=== PATIENT | female | born 1985 | race African-American/Black ===

== ENCOUNTER 2022-02-09 09:50 | Outpatient (CLI) | payer OTHER, SELFPAY ==
[2022-02-09 19:21] LABS: Basophils Absolute Auto 0.1 K/mm3 (0.0-0.1); Basophils Percent Auto 1.5 % (0.2-1.2); Eosinophils Absolute Auto 0.2 K/mm3 (0-0.3); Eosinophils Percent Auto 3.1 % (0-4.4); Hematocrit 46.2 % (37.0-47.0); Hemoglobin 14.7 g/dL (12.0-15.0); Immature Granulocyte Absolute 0.03 K/mm3 (0.00-0.031); Immature Granulocyte Percent A 0.6 % (0-0.5); Lymphocytes Absolute Auto 2.32 K/mm3 (0.9-3.2); Lymphocytes Percent Auto 44.7 % (18.3-44.2); Mean Corpuscular HGB Conc 31.8 g/dl (32-36); Mean Corpuscular Volume 84.8 fl (80-100); Mean Platelet Volume 12.1 fl (7.4-10.4); Monocytes Absolute Auto 0.4 K/mm3 (0.1-0.6); Monocytes Percent Auto 7.3 % (2.6-8.5); Neutrophils Absolute Auto 2.2 K/mm3 (1.3-6.7); Neutrophils Percent Auto 42.8 % (45.5-73.1); Platelet Count Result 237 k/mm3 (150-375); Red Blood Count 5.45 M/mm3 (4.2-5.4); Red Cell Distribution Width 14.5 % (11.5-14.5); White Blood Count 5.2 K/mm3 (4.5-10.0)
[2022-02-09 19:53] LABS: Erythrocyte Sedimentation Rate 13 mm/hr (0-20)
[2022-02-09 19:54] LABS: Alanine Aminotransferase 38 U/L (6-35); Albumin Level 4.4 g/dL (3.5-5.1); Alkaline Phosphatase 77 U/L (38-126); Anion Gap 9 mmol/L (8-16); Aspartate Amino Transferase 35 U/L (14-36); Bilirubin,Total 0.5 mg/dL (0.2-1.3); Blood Urea Nitrogen 8 mg/dL (7-17); Calcium 9.1 mg/dL (8.4-10.2); Carbon Dioxide 28 mmol/L (22-30); Chloride 105 mmol/L (98-107); Cholesterol 245 mg/dL (0-200); Estimated Glomerular Filt Rate > 60; Glucose 87 mg/dL (65-110); HDL Direct 40 mg/dL; Potassium 3.5 mmol/L (3.4-5.0); Sodium 142 mmol/L (137-145); Triglycerides 144 mg/dL (<150)
[2022-02-09 20:04] LABS: LDL Cholesterol Direct 156 mg/dL
[2022-02-14 13:37] LABS: Gliadin AB, IgG <1.0 U/mL (<15.0); TTG IGA AB <1.0 U/mL (<15.0)
== END 2022-02-09 09:51 | disposition home or self-care (01) ==
LOC: ANHGOSHLAB 09:52
PROVIDERS: PCP Internal Medicine; Visit Provider Nurse Practitioner
DX: R19.7 Diarrhea, unspecified (principal)
CPT/HCPCS: 36415; 80053; 80061; 83516; 84443; 85025; 85652; 86255

== ENCOUNTER 2022-06-30 10:06 | Emergency (ER) | payer OTHER, SELFPAY ==
--- NOTE | ~2022-06-30 | US_ITS ---
EXAMINATION: US venous doppler [facility] DATE: 06/30/2022 13:04 INDICATION: Left lower limb swelling TECHNIQUE: Bolaños scale images without and with compression and Doppler images of the left lower extrem ity veins were obtained. COMPARISON: None FINDINGS: The left common femoral vein, profunda femoral vein, femoral vein, popliteal vein, peroneal trunk, posterior tibial veins, and greater saphenous vein are patent. IMPRESSION: 1. Patent left lower extremity veins. No evidence of deep venous thrombosis. Reviewed, dictated and finalized at location B.
--- NOTE | ~2022-06-30 | XR_ITS ---
EXAMINATION: XR knee LT min 4V DATE: 06/30/2022 12:48 INDICATION: Left knee pain post injury with pop 5 days prior TECHNIQUE: Anteroposterior, 2 oblique, sunrise and crosstable lateral views of the left knee were obt ained COMPARISON: None. FINDINGS: Alignment is normal. No fracture. Joint spaces appear normal on nonweightbearing imaging. Elongated region of cortical based sclerosis with smooth margins extending proximally 7-8 cm proximal to distal along the inner margin of the anterior cortex of the proximal left tibial metaphysis most consistent with either melorheostosis or an elongated bone island. No joint effusion/layering lipohemarthrosis. Soft tissues are unremarkable. IMPRESSION: 1. No left knee joint effusion or acute osseous abnormality. Reviewed, dictated and finalized at location A.
[2022-06-30 10:09] VITALS: BP 153/85; PULSE 117; RESP 16; TEMP 36.4; O2SAT 100
--- NOTE | 2022-06-30 12:44 | ED.GENADULT ---
HPI - General Adult General Chief complaint: Extremity Injury, Lower Stated complaint: left leg swelling Time Seen by Provider: 06/30/22 11:17 History of Present Illness HPI narrative: 36-year-old female presented the emergency department for evaluation of left knee pain. Patient states she injured her knee on Sunday has had worsening knee swelling since then. Patient states that she is having increased pain with ambulation. Patient describes anterior knee pain. Patient also noticed that she has had increased swelling of her left lower extremity since Sunday. Patient states the swelling is from calf down to ankle. Related Data Home Medications Medication Instructions Recorded Confirmed levonorgestrel-ethinyl estradiol 1 tablet PO DAILY 02/09/22 03/03/22 0.1 mg-20 mcg tablet (Vienva) loratadine 10 mg tablet (Claritin) 10 mg PO DAILY 03/03/22 03/03/22 levonorgestrel-ethinyl estradiol tablet 06/30/22 0.1 mg-20 mcg tablet (Vienva) Allergies Allergy/AdvReac Type Severity Reaction Status Date / Time passion fruit Allergy Mild Hives Verified 06/30/22 12:24 Review of Systems Review of Systems: All systems reviewed & are unremarkable except as noted in HPI and below PMFSH Family History Family History Other Family history of arthritis Hypertension Social History Social History (Updated 03/03/22 @ 10:13 by Geno Ryan CMA) Smoking status: Current every day smoker Additional smoking assessment comments: 1-2 ciggerettes per day Alcohol intake: current Drinks per week: 2 Substance use: never Lack of Transportation: No Lack of Food: Never True Current Housing: I Have Housing Concerned About Future Housing: No Difficulty Paying Gas/Electric Bills: No Difficulty Paying for Meds: No Currently Unemployed: No Education: High School Diploma/GED Difficulty w/ Childcare or Family Care: No Living arrangements: alone Occupation/Education: occupation Gender identity (if verbalized by the patient): Female Spiritual care concerns: No Exam Narrative: APPEARANCE: Well appearing, no pain, no distress, well-nourished. HEAD: normocephalic, atraumatic. EYES: PERRLA/EOMI, conjunctivae clear. NOSE: Normal no drainage NECK: Supple. No adenopathy, no masses. RESPIRATORY: Airway patent, respirations nonlabored. Clear to auscultation bilaterally, no rales, rhonchi, wheezing. CARDIOVASCULAR: Regular rate and rhythm without murmurs rubs or gallops. ABDOMINAL: Soft, nontender, nondistended, normal bowel sounds MUSCULOSKELETAL: Moves all extremities. Small knee effusion on left knee, no crepitus, no deformity, no appears to be tender to palpation mild lower extremity edema. NEURO: Alert. Cranial nerves II through XII intact. Grossly intact SKIN: Warm, dry. Normal Color Course Course Emergency Course: 36-year-old female presented emergency department for evaluation of left knee pain. X-ray was negative for acute fracture dislocation. Ultrasound was negative for DVT. Patient was provided crutches and knee immobilizer for limited weightbearing. Patient was encouraged to do ibuprofen for anti-inflammatory component and for pain control and to ice and elevate as directed. Patient was also encouraged of close follow-up with her primary care physician. All questions and concerns were addressed. Vital Signs Vital signs: Vital Signs Temperature 97.6 F 06/30/22 10:09 Pulse Rate 117 H 06/30/22 10:09 Respiratory Rate 16 06/30/22 10:09 Blood Pressure 153/85 H 06/30/22 10:09 Pulse Oximetry 100 06/30/22 10:09 Oxygen Delivery Room Air 06/30/22 10:09 Temperature 97.6 F 06/30/22 10:09 Pulse Rate 87 06/30/22 14:00 Respiratory Rate 18 06/30/22 14:00 Blood Pressure 100/51 L 06/30/22 14:00 Pulse Oximetry 99 06/30/22 14:00 Oxygen Delivery Room Air 06/30/22 10:09 Medical Decision Making Differentia
[2022-06-30 14:00] VITALS: BP 100/51; PULSE 87; RESP 18; O2SAT 99
== END 2022-06-30 14:00 | disposition home or self-care (01) ==
PROVIDERS: Emergency Provider Emergency Medicine; PCP Nurse Practitioner
DX: S89.92XA Unspecified injury of left lower leg, initial encounter (principal); F17.210 Nicotine dependence, cigarettes, uncomplicated; X58.XXXA Exposure to other specified factors, initial encounter; X50.9XXA Other and unspecified overexertion or strenuous movements or postures, initial encounter
CPT/HCPCS: 73564; 93971; 99284

== ENCOUNTER 2022-08-02 14:45 | Outpatient (CLI) | payer OTHER, SELFPAY ==
[2022-08-02 18:18] LABS: Basophils Absolute Auto 0.1 K/mm3 (0.0-0.1); Basophils Percent Auto 0.8 % (0.2-1.2); Eosinophils Absolute Auto 0.2 K/mm3 (0-0.3); Eosinophils Percent Auto 2.7 % (0-4.4); Hematocrit 37.8 % (37.0-47.0); Hemoglobin 12.5 g/dL (12.0-15.0); Immature Granulocyte Absolute 0.03 K/mm3 (0.00-0.031); Immature Granulocyte Percent A 0.5 % (0-0.5); Lymphocytes Absolute Auto 2.31 K/mm3 (0.9-3.2); Mean Corpuscular HGB Conc 33.1 g/dl (32-36); Mean Corpuscular Hemoglobin 25.9 pg (26-34); Mean Corpuscular Volume 78.3 fl (80-100); Mean Platelet Volume 10.8 fl (7.4-10.4); Monocytes Absolute Auto 0.7 K/mm3 (0.1-0.6); Monocytes Percent Auto 10.3 % (2.6-8.5); Neutrophils Absolute Auto 3.4 K/mm3 (1.3-6.7); Neutrophils Percent Auto 50.7 % (45.5-73.1); Platelet Count Result 239 k/mm3 (150-375); Red Blood Count 4.83 M/mm3 (4.2-5.4); Red Cell Distribution Width 13.3 % (11.5-14.5); White Blood Count 6.6 K/mm3 (4.5-10.0)
[2022-08-02 19:28] LABS: Free T4 Free Thyroxine 5.01 ng/mL (0.78-2.19); Vitamin D 25 Hydroxy 20.6 ng/mL
[2022-08-02 19:50] LABS: Alanine Aminotransferase 23 U/L (6-35); Albumin Level 3.7 g/dL (3.5-5.1); Alkaline Phosphatase 74 U/L (38-126); Anion Gap 6 mmol/L (8-16); Aspartate Amino Transferase 24 U/L (14-36); Bilirubin,Total 0.4 mg/dL (0.2-1.3); Blood Urea Nitrogen 9 mg/dL (7-17); Carbon Dioxide 26 mmol/L (22-30); Chloride 106 mmol/L (98-107); Estimated Glomerular Filt Rate > 60; Glucose 106 mg/dL (65-110); Potassium 3.6 mmol/L (3.4-5.0); Sodium 138 mmol/L (137-145)
[2022-08-02 20:13] LABS: Thyroid Stimulating Hormone < 0.015 uIU/mL (0.465-4.680)
[2022-08-06 05:50] LABS: Triiodothyronine T3 Free 15.5 pg/mL (2.3-4.2)
== END 2022-08-02 14:46 | disposition home or self-care (01) ==
LOC: ANHGOSHLAB 14:46
PROVIDERS: PCP Internal Medicine; Visit Provider Nurse Practitioner
DX: F32.A Depression, unspecified (principal); F41.9 Anxiety disorder, unspecified; R25.1 Tremor, unspecified
CPT/HCPCS: 36415; 80053; 82306; 84439; 84443; 84481; 85025

== ENCOUNTER 2022-08-30 15:19 | Outpatient (CLI) | payer OTHER, SELFPAY ==
--- NOTE | 2022-08-30 15:44 | ECHO_ITS ---
Patient Info Name: Garry Solano Age: 36 years : 1985 Gender: Female Ht: 67 in Wt: 175 lbs BSA: 1.95 m2 HR: 98 bpm BP: 155 / 77 mmHg Heart Rhythm: Tachycardia Technical Quality: Good Exam Date: 08/30/2022 3:56 PM Exam Location: [facility] Patient Status: Outpatient Admit Date: 08/30/2022 Staff Ordering Physician: Zehra Jasso NP [place] Packer: Gabriel Tristan RDCS Attending Provider: Zehra Jasso NP Referring Physician: Romero ROSALES; Exam Type: CA echo doppler color flow Study Info Indications - tacchyacrdia Complete two-dimensional, color flow and Doppler transthoracic echocardiogram is performed. Summary 1. Complete two-dimensional, color flow and Doppler transthoracic echocardiogram is performed. 2. Left ventricular chamber dimension is normal. 3. Left ventricular systolic function is normal, estimated at 60-65%. 4. The left ventricular diastolic function is normal. 5. E/e' 8 is minimally elevated. 6. There is trace tricuspid valve regurgitation. 7. No pulmonary hypertension, estimated pulmonary arterial systolic pressure is 8 mmHg. Left Ventricle E/e' 8 is minimally elevated. Left ventricular chamber dimension is normal. Left ventricular systolic function is normal, estimated at 60-65%. The left ventricular diastolic function is normal. Right Ventricle Right ventricular systolic function is normal and with normal TAPSE 2.3 cm.. Right ventricular chamber dimension is normal. Left Atria Left atrial chamber dimension is normal. Right Atria Right atrial chamber dimension is normal. Aortic Valve The aortic valve is trileaflet. There is no aortic valve stenosis. There is no aortic valve regurgitation. Pulmonic Valve There is no pulmonic regurgitation. Mitral Valve There is no mitral valve stenosis. There is no mitral valve regurgitation. Tricuspid Valve There is trace tricuspid valve regurgitation. No pulmonary hypertension, estimated pulmonary arterial systolic pressure is 8 mmHg. Pericardium/Pleural There is no pericardial effusion. Inferior Vena Cava Normal inferior vena cava with >50% collapse upon inspiration consistent with normal right atrial pressure, 5 mmHg. Aorta The aortic root size at the sinus of Valsalva is normal. Left Ventricular Outflow Tract Name Value Normal LVOT 2D LVOT Diameter 1.8 cm LVOT Doppler LVOT Peak Gradient 8 mmHg LVOT Mean Gradient 3 mmHg LVOT VTI 21 cm LVOT VTI/AV VTI Ratio 0.7 LVOT Stroke Volume 50 ml LVOT CO 4.8 l/min LVOT CI 2.5 l/min/m2 Pulmonic Valve Name Value Normal RVOT Doppler RVOT Peak Gradient 2 mmHg PV Doppler PV Peak Gradient
== END 2022-08-30 15:20 | disposition home or self-care (01) ==
PROVIDERS: PCP Internal Medicine; Visit Provider Nurse Practitioner
DX: R00.0 Tachycardia, unspecified (principal); I10 Essential (primary) hypertension
CPT/HCPCS: 93306

== ENCOUNTER 2022-09-08 11:13 | Outpatient (CLI) | payer OTHER, SELFPAY ==
[2022-09-08 12:21] LABS: Thyroid Stimulating Hormone < 0.015 uIU/mL (0.465-4.680); Total Triiodothyronine (T3) 4.61 NG/ML (0.97-1.69)
[2022-09-08 12:31] LABS: Free T4 Free Thyroxine 4.74 ng/mL (0.78-2.19)
[2022-09-11 04:35] LABS: Thyroid Peroxidase Antibodies 61 IU/mL (<9)
[2022-09-11 14:41] LABS: Thyrotropin Receptor Antibody 18.53 IU/L (<=2.00)
[2022-09-13 14:01] LABS: Thyroid Stimulating Immunoglob 309 % baseline (<140)
== END 2022-09-08 11:14 | disposition home or self-care (01) ==
LOC: ANHLAB 11:15
PROVIDERS: PCP Internal Medicine; Visit Provider Internal Medicine
DX: E05.90 Thyrotoxicosis, unspecified without thyrotoxic crisis or storm (principal)
CPT/HCPCS: 36415; 83519; 84439; 84443; 84445; 84480; 86376

== ENCOUNTER 2022-09-12 14:00 | Outpatient (CLI) | payer OTHER, SELFPAY ==
--- NOTE | ~2022-09-12 | US_ITS ---
EXAMINATION: US thyroid DATE: 09/12/2022 14:32 INDICATION: Thyrotoxicosis, unspecified without thyrotoxic crisis. TECHNIQUE: Multiple ultrasound images of the thyroid were obtained. COMPARISON: None. FINDINGS: The right thyroid lobe measures 6.0 x 2.7 x 2.1 cm. The left thyroid lobe measures 5.6 x 2.0 x 2.1 c m. The thyroid is diffusely heterogeneous and hypoechoic. Vascularity is increased. No discrete nodu le. IMPRESSION: 1. Heterogeneous, hypervascular thyroid, consistent with chronic lymphocytic (Mita) thyroiditis versus Graves' disease. Reviewed, dictated and finalized at location E. IMPRESSION: 1. Heterogeneous, hypervascular thyroid, consistent with chronic lymphocytic (H ashimoto) thyroiditis versus Graves' disease.
== END 2022-09-12 14:01 | disposition home or self-care (01) ==
PROVIDERS: PCP Nurse Practitioner; Visit Provider Internal Medicine
DX: E05.90 Thyrotoxicosis, unspecified without thyrotoxic crisis or storm (principal)
CPT/HCPCS: 76536

== ENCOUNTER 2022-10-13 11:52 | Outpatient (CLI) | payer OTHER, SELFPAY ==
[2022-10-13 12:53] LABS: Alanine Aminotransferase 25 U/L (6-35); Albumin Level 4.1 g/dL (3.5-5.1); Alkaline Phosphatase 126 U/L (38-126); Anion Gap 8 mmol/L (8-16); Aspartate Amino Transferase 22 U/L (14-36); Bilirubin,Total 0.4 mg/dL (0.2-1.3); Blood Urea Nitrogen 7 mg/dL (7-17); Calcium 9.3 mg/dL (8.4-10.2); Carbon Dioxide 25 mmol/L (22-30); Chloride 106 mmol/L (98-107); Estimated Glomerular Filt Rate > 60; Glucose 98 mg/dL (65-110); Potassium 4.1 mmol/L (3.4-5.0); Sodium 139 mmol/L (137-145)
[2022-10-13 12:54] LABS: Free T4 Free Thyroxine 1.29 ng/mL (0.78-2.19)
[2022-10-13 13:14] LABS: Total Triiodothyronine (T3) 1.46 NG/ML (0.97-1.69)
== END 2022-10-13 11:53 | disposition home or self-care (01) ==
PROVIDERS: PCP Internal Medicine; Visit Provider Internal Medicine
DX: E05.90 Thyrotoxicosis, unspecified without thyrotoxic crisis or storm (principal)
CPT/HCPCS: 36415; 80053; 84439; 84480

== ENCOUNTER 2022-11-15 14:22 | Outpatient (CLI) | payer OTHER, SELFPAY ==
[2022-11-15 15:43] LABS: Free T4 Free Thyroxine 0.91 ng/mL (0.78-2.19); Total Triiodothyronine (T3) 1.23 NG/ML (0.97-1.69)
== END 2022-11-15 14:23 | disposition home or self-care (01) ==
LOC: ANHLAB 14:24
PROVIDERS: PCP Internal Medicine; Visit Provider Internal Medicine
DX: E05.90 Thyrotoxicosis, unspecified without thyrotoxic crisis or storm (principal)
CPT/HCPCS: 36415; 84439; 84480

== ENCOUNTER 2023-02-21 11:24 | Outpatient (CLI) | payer OTHER, SELFPAY ==
[2023-02-21 17:13] LABS: Free T4 Free Thyroxine 1.44 ng/mL (0.78-2.19)
[2023-02-21 17:28] LABS: Total Triiodothyronine (T3) 1.38 NG/ML (0.97-1.69)
== END 2023-02-21 11:25 | disposition home or self-care (01) ==
LOC: ANHWCLAB 11:25
PROVIDERS: PCP Internal Medicine; Visit Provider Internal Medicine
DX: E07.9 Disorder of thyroid, unspecified (principal); E05.90 Thyrotoxicosis, unspecified without thyrotoxic crisis or storm
CPT/HCPCS: 36415; 84439; 84443; 84480

== ENCOUNTER 2023-06-27 14:09 | Outpatient (CLI) | payer OTHER, SELFPAY ==
[2023-06-27 17:11] LABS: Total Triiodothyronine (T3) 1.43 NG/ML (0.97-1.69)
[2023-06-27 18:10] LABS: Iron 127 ug/dL (37-170)
[2023-06-27 18:19] LABS: Percent Iron Saturation 34 % (20-50)
== END 2023-06-27 14:10 | disposition home or self-care (01) ==
LOC: ANHWCLAB 14:11
PROVIDERS: PCP Internal Medicine; Visit Provider Internal Medicine
DX: E05.90 Thyrotoxicosis, unspecified without thyrotoxic crisis or storm (principal); E07.9 Disorder of thyroid, unspecified; F32.A Depression, unspecified; F41.9 Anxiety disorder, unspecified; I10 Essential (primary) hypertension; R00.0 Tachycardia, unspecified
CPT/HCPCS: 36415; 83540; 83550; 84439; 84443; 84480

== ENCOUNTER 2023-07-08 17:12 | Emergency (ER) | payer OTHER, SELFPAY ==
--- NOTE | 2023-07-08 17:16 | ED.URI ---
HPI - URI/Sore Throat General Chief Complaint: Upper Respiratory Infection Stated Complaint: COUGH/SINUS PRESSURE/CONGESTION/WHEEZING Time Seen by Provider: 07/08/23 17:24 Source: patient and RN notes reviewed Mode of arrival: ambulatory Limitations: no limitations History of Present Illness HPI Narrative: 37-year-old female presents with concern for one-week history of sinus congestion, sinus pain, cough, fever, dizziness. Reports she has tried some [id number]-[id number] medications without relief. MD elicited complaint: cough, nasal congestion and sinus pain Related Data Home Medications Medication Instructions Recorded Confirmed fluticasone propionate 50 1 spray intranasal BID 07/05/22 07/08/23 mcg/actuation nasal spray,suspension fexofenadine 180 mg tablet 180 mg PO DAILY 08/02/22 10/13/22 (Jessie Allergy) Allergies Allergy/AdvReac Type Severity Reaction Status Date / Time passion fruit Allergy Mild Hives Verified 07/08/23 17:21 Review of Systems Review of Systems: CONSTITUTIONAL: Reports malaise, fever. EYES: Denies visual changes, redness, or discharge. ENT: Reports rhinorrhea, congestion, sinus pain CARDIOVASCULAR: Denies chest pain, palpitations, or edema. RESPIRATORY: Reports cough, wheezing, dyspnea. GASTROINTESTINAL: Denies abdominal pain, nausea, vomiting, diarrhea SKIN: Denies rash or itching. MUSCULOSKELETAL: Reports myalgia. NEUROLOGIC: Denies headache. All systems reviewed & are unremarkable except as noted in HPI and below PMFSH Past Medical History Medical History Anxiety and depression Hypertension Hyperthyroidism Family History Family History Other Family history of arthritis Hypertension Social History Social History Smoking status: Current every day smoker Additional smoking assessment comments: 1-2 ciggerettes per day Alcohol intake: current Drinks per week: 2 Substance use: never Lack of Transportation: No Lack of Food: Never True Current Housing: I Have Housing Concerned About Future Housing: No Difficulty Paying Gas/Electric Bills: Decline to Answer Difficulty Paying for Meds: No Currently Unemployed: No Education: High School Diploma/GED Difficulty w/ Childcare or Family Care: No Living arrangements: alone Occupation/Education: occupation Gender identity (if verbalized by the patient): Female Spiritual care concerns: No Comments At time of signature, agree with nursing past medical, surgical, social and family history. There is no relevant family history pertinent to the presenting complaint Exam Narrative: GENERAL: Nontoxic-appearing, well-nourished, and in no acute distress. HEAD: Normocephalic EYES: PERRLA, conjunctivae clear ENT: Nares clear, turbinates edematous and erythematous. Mucous membranes moist. TM pearly joy with dull light reflex bilaterally; no tragal tenderness. Oropharynx not erythematous without lesions. Tonsils not enlarged and without exudate, no drooling, no hoarseness, no trismus, uvula midline. NECK: Supple. No lymphadenopathy CHEST: Scattered expiratory wheeze throughout, otherwise Clear to auscultation, breath sounds equal. No rhonchi, rales, or stridor. No respiratory distress, speaks in full sentences. HEART: Regular rate and rhythm. No murmur heard. SKIN: Warm, dry, no rash. NEURO: Alert and oriented x3. PSYCH: Normal mood and affect Course Course Emergency Course: Patient is aware of diagnosis, understands and agrees to treatment plan. Anticipatory guidance given. Patient agrees to follow-up as directed and is aware of reasons to seek care at the emergency department. Portions of this record may have been created with voice recognition software Level of Care: Express Care Visit Vital Signs Vital signs: Reviewed.
[2023-07-08 17:24] VITALS: BP 161/95; PULSE 109; RESP 16; TEMP 36.8; O2SAT 100
== END 2023-07-08 17:35 | disposition home or self-care (01) ==
PROVIDERS: Emergency Provider Nurse Practitioner; PCP Nurse Practitioner
DX: J40 Bronchitis, not specified as acute or chronic (principal); I10 Essential (primary) hypertension; E05.90 Thyrotoxicosis, unspecified without thyrotoxic crisis or storm; F17.210 Nicotine dependence, cigarettes, uncomplicated
CPT/HCPCS: 99213; G0463

== ENCOUNTER 2023-07-20 08:35 | Outpatient (CLI) | payer OTHER, SELFPAY ==
[2023-07-20 18:49] LABS: Basophils Absolute Auto 0.1 K/mm3 (0.0-0.1); Basophils Percent Auto 1.1 % (0.2-1.2); Eosinophils Absolute Auto 0.4 K/mm3 (0-0.3); Eosinophils Percent Auto 4.5 % (0-4.4); Hematocrit 42.5 % (37.0-47.0); Hemoglobin 13.5 g/dL (12.0-15.0); Immature Granulocyte Absolute 0.05 K/mm3 (0.00-0.031); Immature Granulocyte Percent A 0.6 % (0-0.5); Lymphocytes Absolute Auto 3.64 K/mm3 (0.9-3.2); Lymphocytes Percent Auto 40.1 % (18.3-44.2); Mean Corpuscular HGB Conc 31.8 g/dl (32-36); Mean Corpuscular Hemoglobin 27.1 pg (26-34); Mean Corpuscular Volume 85.3 fl (80-100); Mean Platelet Volume 11.8 fl (7.4-10.4); Monocytes Absolute Auto 0.5 K/mm3 (0.1-0.6); Monocytes Percent Auto 5.6 % (2.6-8.5); Neutrophils Absolute Auto 4.4 K/mm3 (1.3-6.7); Neutrophils Percent Auto 48.1 % (45.5-73.1); Platelet Count Result 225 k/mm3 (150-375); Red Blood Count 4.98 M/mm3 (4.2-5.4); Red Cell Distribution Width 14.4 % (11.5-14.5); White Blood Count 9.1 K/mm3 (4.5-10.0)
[2023-07-20 19:15] LABS: Alanine Aminotransferase 22 U/L (6-35); Albumin Level 4.1 g/dL (3.5-5.1); Alkaline Phosphatase 73 U/L (38-126); Anion Gap 3 mmol/L (4-12); Aspartate Amino Transferase 27 U/L (14-36); Bilirubin,Total 0.4 mg/dL (0.2-1.3); Blood Urea Nitrogen 6 mg/dL (7-17); Calcium 9.2 mg/dL (8.4-10.2); Carbon Dioxide 30 mmol/L (22-30); Chloride 105 mmol/L (98-107); Cholesterol 201 mg/dL (0-200); Estimated Glomerular Filt Rate > 60; Glucose 97 mg/dL (65-110); HDL Direct 44 mg/dL; Potassium 4.1 mmol/L (3.4-5.0); Sodium 138 mmol/L (137-145); Triglycerides 82 mg/dL (<150)
[2023-07-20 19:26] LABS: LDL Cholesterol Direct 134 mg/dL
== END 2023-07-20 08:36 | disposition home or self-care (01) ==
LOC: ANHGOSHLAB 08:37
PROVIDERS: PCP Nurse Practitioner; Visit Provider Nurse Practitioner
DX: E05.90 Thyrotoxicosis, unspecified without thyrotoxic crisis or storm (principal); I10 Essential (primary) hypertension
CPT/HCPCS: 36415; 80053; 80061; 85025

== ENCOUNTER 2023-10-30 15:02 | Outpatient (CLI) | payer OTHER, SELFPAY ==
[2023-10-30 16:08] LABS: Free T4 Free Thyroxine 1.28 ng/mL (0.78-2.19); Vitamin D 25 Hydroxy 41.6 ng/mL
[2023-10-30 16:23] LABS: Total Triiodothyronine (T3) 1.25 NG/ML (0.97-1.69)
== END 2023-10-30 15:03 | disposition home or self-care (01) ==
LOC: ANHLAB 15:04
PROVIDERS: PCP Nurse Practitioner; Visit Provider Internal Medicine
DX: E07.9 Disorder of thyroid, unspecified (principal); E05.90 Thyrotoxicosis, unspecified without thyrotoxic crisis or storm; F32.A Depression, unspecified; F41.9 Anxiety disorder, unspecified; E66.9 Obesity, unspecified; I10 Essential (primary) hypertension
CPT/HCPCS: 36415; 82306; 82607; 84439; 84443; 84480

== ENCOUNTER 2024-05-02 14:19 | Outpatient (CLI) | payer OTHER, SELFPAY ==
[2024-05-02 15:28] LABS: Alanine Aminotransferase 18 U/L (6-35); Albumin Level 4.2 g/dL (3.5-5.1); Alkaline Phosphatase 76 U/L (38-126); Anion Gap 9 mmol/L (4-12); Aspartate Amino Transferase 18 U/L (14-36); Bilirubin,Total 0.6 mg/dL (0.2-1.3); Blood Urea Nitrogen 7 mg/dL (7-17); Calcium 9.2 mg/dL (8.4-10.2); Carbon Dioxide 27 mmol/L (22-30); Chloride 103 mmol/L (98-107); Estimated Glomerular Filt Rate > 60; Glucose 98 mg/dL (65-110); Potassium 4.2 mmol/L (3.4-5.0); Sodium 139 mmol/L (137-145)
[2024-05-02 15:31] LABS: Free T4 Free Thyroxine 1.37 ng/dL (0.78-2.19)
[2024-05-02 15:56] LABS: Total Triiodothyronine (T3) 1.42 NG/ML (0.97-1.69)
== END 2024-05-02 14:20 | disposition home or self-care (01) ==
LOC: ANHLAB 14:20
PROVIDERS: PCP Nurse Practitioner; Visit Provider Internal Medicine
DX: E05.90 Thyrotoxicosis, unspecified without thyrotoxic crisis or storm (principal); I10 Essential (primary) hypertension; E07.9 Disorder of thyroid, unspecified; E66.9 Obesity, unspecified; E04.1 Nontoxic single thyroid nodule
CPT/HCPCS: 36415; 80053; 83519; 84439; 84443; 84445; 84480

== ENCOUNTER 2025-01-16 13:24 | Outpatient (CLI) | payer OTHER, SELFPAY ==
[2025-01-16 13:59] LABS: Alanine Aminotransferase 22 U/L (6-35); Albumin Level 4.5 g/dL (3.5-5.1); Alkaline Phosphatase 70 U/L (38-126); Anion Gap 9 mmol/L (4-12); Aspartate Amino Transferase 19 U/L (14-36); Bilirubin,Total 0.6 mg/dL (0.2-1.3); Blood Urea Nitrogen 8 mg/dL (7-17); Calcium 9.4 mg/dL (8.4-10.2); Carbon Dioxide 22 mmol/L (22-30); Chloride 106 mmol/L (98-107); Estimated Glomerular Filt Rate > 60; Glucose 98 mg/dL (65-110); Potassium 4.2 mmol/L (3.4-5.0); Sodium 137 mmol/L (137-145); Total Protein 7.9 g/dL (6.3-8.2)
[2025-01-16 14:15] LABS: Free T4 Free Thyroxine 1.32 ng/dL (0.78-2.19)
[2025-01-16 14:31] LABS: Thyroid Stimulating Hormone 3.400 uIU/mL (0.465-4.680); Total Triiodothyronine (T3) 1.43 NG/ML (0.82-1.58)
== END 2025-01-16 13:25 | disposition home or self-care (01) ==
LOC: ANHLAB 13:25
PROVIDERS: PCP Nurse Practitioner; Visit Provider Internal Medicine
DX: E05.90 Thyrotoxicosis, unspecified without thyrotoxic crisis or storm (principal); I10 Essential (primary) hypertension; E07.9 Disorder of thyroid, unspecified; E66.9 Obesity, unspecified; E04.1 Nontoxic single thyroid nodule
CPT/HCPCS: 36415; 80053; 83520; 84439; 84443; 84445; 84480